=== PATIENT | female | born 1975 | race Caucasian/White ===

== ENCOUNTER 2019-08-08 07:53 | Outpatient (CLI) | payer BC, SELFPAY ==
--- NOTE | 2019-08-08 08:42 | MM_ITS ---
WS: [id number] BILATERAL DIGITAL SCREENING MAMMOGRAM WITH CAD CLINICAL INFORMATION: SCREENING HISTORY: Screening mammogram. No current complaints. COMPARISON: August 07, 2018 TECHNIQUE: Bilateral CC and MLO views. FINDINGS: Fatty-replaced breasts bilaterally. No suspicious focal mass, asymmetry, calcifications, or enterprise business architect ural distortion. No evidence of malignancy. MM/[id number] IMPRESSION: BI-RADS: 1-Negative FOLLOW UP: 1 Year Follow-up Recommend return to annual screening mammography.
== END 2019-08-08 07:54 | disposition home or self-care (01) ==
PROVIDERS: Family Provider Family Medicine; PCP Family Medicine; Visit Provider Family Medicine
DX: Z12.31 Encounter for screening mammogram for malignant neoplasm of breast (principal)
CPT/HCPCS: 77067

== ENCOUNTER → 2021-11-26 15:09 | Outpatient (BNVA) | payer OTHER, SELFPAY | PROVIDERS: Family Provider Family Medicine; PCP Family Medicine; Referring Provider Family Medicine; Visit Provider Podiatrist Foot & Ankle Surgery | DX: M79.672 Pain in left foot (principal) | CPT/HCPCS: 73630 ==

== ENCOUNTER → 2021-12-17 14:50 | Outpatient (BNVA) | payer OTHER, SELFPAY | PROVIDERS: Family Provider Family Medicine; PCP Family Medicine; Visit Provider Family Medicine | DX: R63.5 Abnormal weight gain (principal); Z76.89 Persons encountering health services in other specified circumstances; Z83.49 Family history of other endocrine, nutritional and metabolic diseases | CPT/HCPCS: 80053; 80061; 84443; 85025 ==

== ENCOUNTER → 2021-12-22 12:05 | Outpatient (BNVA) | payer OTHER, SELFPAY | PROVIDERS: Family Provider Family Medicine; PCP Family Medicine; Visit Provider Family Medicine | DX: E78.00 Pure hypercholesterolemia, unspecified (principal) | CPT/HCPCS: 80053 ==

== ENCOUNTER → 2021-12-23 16:12 | Outpatient (BNVA) | payer OTHER, SELFPAY | PROVIDERS: Family Provider Family Medicine; PCP Family Medicine; Visit Provider Family Medicine | DX: E78.00 Pure hypercholesterolemia, unspecified (principal); Z76.89 Persons encountering health services in other specified circumstances | CPT/HCPCS: 80061 ==

== ENCOUNTER → 2022-09-21 16:43 | Outpatient (BNVA) | payer OTHER, SELFPAY | PROVIDERS: Family Provider Family Medicine; PCP Family Medicine; Visit Provider Family Medicine | DX: R42 Dizziness and giddiness (principal) | CPT/HCPCS: 80053; 84443; 85651; 86140 ==

== ENCOUNTER → 2022-10-06 13:43 | Outpatient (BNVA) | payer OTHER, SELFPAY | PROVIDERS: Family Provider Family Medicine; PCP Family Medicine; Visit Provider Family Medicine | DX: R79.89 Other specified abnormal findings of blood chemistry (principal) | CPT/HCPCS: 84439; 84443; 84481 ==

== ENCOUNTER 2022-10-21 07:06 | Outpatient (CLI) | payer OTHER, SELFPAY ==
--- NOTE | 2022-10-21 07:15 | MR_ITS ---
WS: [id number] MRA HEAD TECHNIQUE: Axial 3-D TOF images obtained with axial images and axial, sagittal, and coronal 2-D refor matted images. CLINICAL INFORMATION: Vertigo COMPARISON: None. FINDINGS: Distal vertebral arteries are patent. Basilar artery is patent. Normal vascularity to the WET PRIMER POWDER BLENDER territo ry bilaterally. Distal WET PRIMER POWDER BLENDER vessels are patent. Both ICAs are patent at the skull base. Normal vascularity to the ELLEN and MCA territories bilaterally . No evidence of high-grade proximal stenosis or aneurysm. MR/MR angio head wo [id number] IMPRESSION: Normal intracranial MRA.
== END 2022-10-21 07:07 | disposition home or self-care (01) ==
LOC: RAD 07:08
PROVIDERS: PCP Family Medicine; Visit Provider Family Medicine
DX: R42 Dizziness and giddiness (principal)
CPT/HCPCS: 70544

== ENCOUNTER 2022-12-02 06:00 | Outpatient (RCR) | payer OTHER, SELFPAY | END 2022-12-15 23:59 | disposition home or self-care (01) | LOC: SPT 06:00 | PROVIDERS: Visit Provider Family Medicine | DX: R42 Dizziness and giddiness (principal) | CPT/HCPCS: 95992; 97161 ==

== ENCOUNTER → 2023-02-16 09:01 | Outpatient (BNVA) | payer OTHER, SELFPAY | PROVIDERS: PCP Family Medicine; Visit Provider Family Medicine | DX: R20.0 Anesthesia of skin (principal); R26.89 Other abnormalities of gait and mobility; R42 Dizziness and giddiness; R53.82 Chronic fatigue, unspecified; R63.5 Abnormal weight gain; R79.89 Other specified abnormal findings of blood chemistry; E83.42 Hypomagnesemia; E83.52 Hypercalcemia | CPT/HCPCS: 80053; 80061; 82306; 82607; 82746; 83735; 84439; 84443; 84481; 85025; 85651; 86038; 86140; 86200; 86376 ==

== ENCOUNTER 2023-05-04 15:02 | Outpatient (CLI) | payer OTHER, SELFPAY ==
--- NOTE | 2023-05-04 15:15 | MR_ITS ---
WS: [id number] MRI BRAIN WITH AND WITHOUT CONTRAST HISTORY: R42 - Dizziness and giddiness COMPARISON: None available. TECHNIQUE: Multiplanar imaging performed through the brain with MultiHance 20 ml's IV. No acute infarcts are seen. Rico-white matter differentiation is well preserved. Single RIGHT tempora l lobe subcortical white matter lesion is subcentimeter. Very nonspecific. No prior infarcts. Normal hippocampal formations. No susceptibility artifacts or prior lacunar infarcts. Ventricles and extra-axial spaces are normal. Clivus and pituitary gland are normal. Visualized posterior fossa and brainstem are also normal. No abnormality noted at the cerebellopontine angles or along the internal auditory canals. Postcontrast images are negative for masses or vascular malformations. Dural venous sinuses are normal. Paranasal sinuses: Well aerated with no significant disease. Mastoid air cells: Normal. Calvarium and scalp: Normal. IMPRESSION: 1. No acute infarct or hemorrhage. 2. Normal rico-white matter differentiation. No prior infarcts or ischemic event. 3. Normal temporal lobes. 4. No enhancing masses or vascular malformations.
--- NOTE | 2023-05-04 16:00 | MR_ITS ---
WS: [id number] MRA CAROTID ARTERIES HISTORY: R42 - Dizziness and giddiness COMPARISON: None available. TECHNIQUE: MRA is performed with intravenous gadolinium. MIP and source images are reviewed. MultiHan ce 20 mL IV. Right: Normal. Patent carotid artery. No significant stenosis at the internal carotid artery. Normal ECA. Left: Normal. Patent carotid artery. No significant stenosis at the internal carotid artery. Normal E CA. Subclavian Arteries: Patent. The proximal LEFT subclavian artery is only seen on the T2 [id number] t imaging. Vertebral Arteries: Normal. IMPRESSION: No significant carotid artery stenosis.
[2023-05-04] MEDS: gadobenate dimeglumine 20 mL vial IV (17:29)
== END 2023-05-04 15:03 | disposition home or self-care (01) ==
LOC: RAD 15:02
PROVIDERS: PCP Family Medicine; Visit Provider Psychiatry & Neurology Neurology
DX: R42 Dizziness and giddiness (principal); R26.89 Other abnormalities of gait and mobility
CPT/HCPCS: 70548; 70553; A9577